=== PATIENT | female | born 1945 | race African-American/Black ===

== ENCOUNTER 2018-10-17 09:19 | Inpatient (IN) ==
[2018-10-17] MEDS ORDERED: NITROGLYCERIN ONE (09:40)
[2018-10-17] MEDS ORDERED: NITROGLYCERIN TOP ONE (09:49)
[2018-10-17] MEDS ORDERED: LASIX IV ONE (09:50)
[2018-10-17 09:59] LABS: BASO# 0.02 X1000 (0.0-0.2); BASO% 0.3 % (0.0-0.8); EOS# 0.12 X1000 (0.0-0.7); EOS% 1.5 % (0.0-10.0); HEMATOCRIT 32.8 % (37.0-47.0); HEMOGLOBIN 10.3 g/dL (12.0-16.0); IMM GRAN# 0.01 X1000 (0.0-0.04); IMM GRAN% 0.1 % (0.0-0.5); LYMPH# 0.98 X1000 (1.2-3.4); LYMPH% 12.5 % (20.5-51.1); MCH 22.1 PG (27-31); MCHC 31.4 g/dL (33-37); MCV 70.2 FL (81-99); MONO# 0.54 X1000 (0.11-0.59); MONO% 6.9 % (1.7-9.3); MPV 10.8 FL (7.4-10.4); NEUT# 6.16 X1000 (1.4-6.5); NEUT% 78.7 % (42.2-75.2); PLT 237 X1000 (130-400); RBC 4.67 XMIL (4.2-5.4); RDW 19.7 % (11.5-14.5); WBC 7.83 X1000 (4.8-10.8)
[2018-10-17 10:12] LABS: BE -1.6 mmoll (-3.0-3.0); BLOOD TYPE ARTERIAL; HCO3-(ACT) 23.5 mmoll (20.0-26.0); METHB 0.9 % (0.0-1.5); O2(CT) 11.7 mL/dL (15.0-23.0); PCO2(98.6) 45 mmHg (35-45); PO2(98.6) 51 mmHg (60-100); SAMPLE BLOOD; SAO2 88.7 % (95.0-100.0); THB 9.8 g/dL (11.5-17.4); pH(98.6) 7.34 (7.35-7.45)
[2018-10-17 10:26] LABS: ALLEN TEST NO; MODALITY CANNULA
[2018-10-17 10:28] LABS: ALBUMIN 3.4 g/dL (3.5-5.0); CREATININE 1.6 mg/dL (0.5-0.9); POTASSIUM 4.1 mmol/L (3.5-5.1); TOTAL BILIRUBIN 0.6 mg/dL (0.20-1.00); TOTAL PROTEIN 8.2 g/dL (6.3-8.3)
--- NOTE | 2018-10-17 10:31 | Diag Imaging Result Doc PS360 ---
EXAM: CHEST-PORTABLE INDICATION: sob TECHNIQUE: One view COMPARISON: 07/11/2018 FINDINGS: The central vasculature is increased suggesting pulmonary venous congestion and mild perihilar edema. There is no discrete pleural fluid collection or pneumothorax. The cardiac silhouette is borderline to mildly prominent but stable. IMPRESSION: Suggestion of pulmonary venous congestion and mild interstitial edema. Electronically signed by Power Ling 10/17/2018 10:29 AM
[2018-10-17 10:32] LABS: O2HB 84.9 % (95.0-99.0)
[2018-10-17] MEDS ORDERED: LOVENOX SUBQ SCH (14:24)
--- NOTE | 2018-10-17 15:25 | HISTORY AND PHYSICAL ---
PRIMARY CARE PHYSICIAN: Dr. Reagan Yun. CHIEF COMPLAINT: Shortness of breath over the past day that had progressively worsened. HISTORY OF PRESENTING ILLNESS: This is a 73-year-old female who presents to [facility] ER with complaints of shortness of breath. O2 saturation on room air was 86%. She is currently saturating 96% on 3 L. Her workup did show a D-dimer of 1.41, creatinine of 1.6, proBNP of 5070. TSH level was 0.16. She has had a history of congestive heart failure in the past. She states she has been taking her medications as prescribed. She had an echocardiogram approximately 1 year ago in September of 2017 that showed an ejection fraction of at least 70%, but had a grade 1 left ventricular diastolic dysfunction so she is being admitted for further evaluation and treatment. PAST MEDICAL HISTORY: Diastolic congestive heart failure, atrial fibrillation, hypertension and diabetes. PAST SURGICAL HISTORY: Hysterectomy. FAMILY HISTORY: Reviewed and noncontributory. SOCIAL HISTORY: She currently lives with family. She is a former smoker, but none currently and denies any alcohol or illicit drug use. ALLERGIES: Adhesive tape. HOME MEDICATIONS: A current list will need to be reconciled and reviewed, and restarted as appropriate. I will place an order for nursing to update and confirm home medications. LABORATORY DATA: White blood cell count of 7.83, hemoglobin 10.3, hematocrit 32.8, and platelets 237,000. D-dimer of 1.41. ABG with pH of 7.34, pCO2 of 45, PO2 51, bicarb 23.5, and this was on 3 L via nasal cannula. Sodium of 143, potassium 4.1 chloride 107, CO2 24, BUN of 21, creatinine 1.6, and glucose 122. Cardiac enzyme was negative. ProBNP of 5070. TSH of 0.16. She had a chest x-ray that showed suggestion of pulmonary venous congestion and mild interstitial edema. REVIEW OF SYSTEMS: She denied any fever, chills, blurred vision, dizziness, chest pain, or coughing. She was short of breath, had swelling to bilateral lower extremities. Denied any abdominal pain, constipation, diarrhea, burning or hurting with urination. PHYSICAL EXAMINATION: On arrival, she had a temperature of 97.7 degrees, pulse of 73, respirations 30, blood pressure was 158/107 and saturating 86% on room air, 92 on 3 L, and currently 96 on 3 L. GENERAL: This is a 73-year-old female who is sitting up in the bed and answers questions appropriately. HEENT: Normocephalic, atraumatic. Normal ENT inspection. Oropharynx and nares are clear. EYES: Pupils are equal, round, and reactive to light and accommodation. Extraocular movements are intact. NECK: Normal inspection. Normal range of motion. LUNGS: Clear to auscultation bilaterally with equal lung expansion. Chest wall movement. HEART: Regular rate and rhythm. No murmurs, rubs, or gallops. Trace bilateral lower extremity edema noted. ABDOMEN: Soft, nontender, and nondistended. Bowel sounds are present x4 quadrants. MUSCULOSKELETAL: She has 5/5 strength x4 extremities. NEUROLOGICAL: The cranial nerves 2-12 appear grossly intact. ASSESSMENT: 1. An acute diastolic congestive heart failure. 2. Elevated D-dimer. 3. Hypertension. 4. A low thyroid level. PLAN: She is being admitted to the medical unit at [address], placed on telemetry, healthy heart diet. We will place on Lasix 40 mg IV q.12. We are going to check an echocardiogram. We will obtain a venous ultrasound of her bilateral lower extremities. I will order a V/Q scan to rule out a PE, but that cannot be done until Friday to rule out a PE and DVT. Place her on Lovenox 40 mg subcu q.24. We will need to update and confirm home medications and restart as appropriate. She has an indwelling Arce catheter. We will recheck a CBC and a BMP in the morning. Further orders after seen by attending. Dictated by EVELIO Albert for Erick Ashraf MD cc: EVELIO Albert MD Malcolm R. Hendricks, MD
[2018-10-17] MEDS ORDERED: ZOFRAN IV PRN (20:37)
[2018-10-17] MEDS ORDERED: IMODIUM PO PRN (20:37)
[2018-10-17] MEDS ORDERED: TYLENOL PO PRN (20:37)
[2018-10-17] MEDS: MULTAQ PO SCH (21:03)
[2018-10-17] MEDS: LASIX IV SCH (21:03)
[2018-10-17] MEDS: NEURONTIN PO SCH (21:03)
[2018-10-17] MEDS: LIPITOR PO SCH (21:03)
[2018-10-17] MEDS: ELIQUIS PO SCH (21:03)
[2018-10-17] MEDS ORDERED: LASIX IV SCH (22:00)
[2018-10-18] MEDS ORDERED: SYNTHROID PO SCH (07:00)
[2018-10-18 07:10] LABS: BASO# 0.02 X1000 (0.0-0.2); BASO% 0.3 % (0.0-0.8); EOS# 0.19 X1000 (0.0-0.7); HEMATOCRIT 29.5 % (37.0-47.0); IMM GRAN# 0.01 X1000 (0.0-0.04); IMM GRAN% 0.2 % (0.0-0.5); LYMPH# 1.12 X1000 (1.2-3.4); LYMPH% 17.5 % (20.5-51.1); MCH 21.7 PG (27-31); MCHC 30.5 g/dL (33-37); MCV 71.1 FL (81-99); MONO# 0.45 X1000 (0.11-0.59); MPV 11.3 FL (7.4-10.4); NEUT# 4.61 X1000 (1.4-6.5); PLT 221 X1000 (130-400); RBC 4.15 XMIL (4.2-5.4); RDW 19.2 % (11.5-14.5)
[2018-10-18 07:22] LABS: CREATININE 1.6 mg/dL (0.5-0.9); POTASSIUM 3.7 mmol/L (3.5-5.1)
[2018-10-18 07:30] LABS: EOS 4 % (1-10); LYMPHS 24 % (21-51); MONO 2 % (1-9); SEGS 70 % (42-75)
[2018-10-18] MEDS ORDERED: GLUCOPHAGE PO SCH (07:30)
[2018-10-18 07:31] LABS: ANISOCYTOSIS 2+; HYPOCHROM 2+; MICROCYTOSIS 1+; POIKILOCYTOSIS 2+; POLYCHROM OCCASIONAL
[2018-10-18 07:32] LABS: OVALOCYTES OCCASIONAL; TARGET CELLS 2+
--- NOTE | 2018-10-18 08:43 | ECHO REPORT ---
ORDER DATE: 10/17/2018 INDICATIONS: Congestive heart failure. M-MODE MEASUREMENTS: Left ventricle end diastole: 3.7 cm. Left ventricle end systole: 2.7 cm. Posterior wall: 0.9 cm. Interventricular septum: 1.0 cm. Left atrium: 4.2 cm. Inferior vena cava: 2.4 cm. SUMMARY OF 2-DIMENSIONAL IMAGIN. The left ventricular function is normal. Ejection fraction is estimated to be in the range of 60%-65%. No wall motion abnormality is noted. The left atrium appears to be mildly enlarged. 2. Aortic valve shows very mild degree of sclerosis of the cusp with trivial aortic regurgitation. 3. Mitral valve looks normal. Color flow mapping unremarkable. 4. Pulse wave Doppler of mitral inflow shows reversal of the E/A ratio, ratio is 0.7. 5. Tissue Doppler of septal and lateral mitral annulus averages 10 cm. 6. Pulmonary venous flow is normal. 7. There is no diastolic dysfunction. 8. Tricuspid valve shows mild degree of regurgitation. 9. The pulmonary pressure is estimated somewhere in the range of 45-50 mmHg. 10.Pulmonic valve shows mild degree of regurgitation. 11.There is no pericardial effusion, mass and no thrombus. 12.Right ventricle appears to be mildly enlarged. SUMMARY: In summary, this study shows: 1. Normal left ventricular systolic function. 2. Mild degree pulmonary hypertension estimated in the range of 45-50 mmHg. 3. Mild to moderate degree of pulmonic and tricuspid regurgitation. 4. Mild degree of sclerosis of aortic valve with trivial degree of regurgitation. 5. No diastolic dysfunction. Clinical correlation recommended. cc: MD Juarez Simpson MD
[2018-10-18] MEDS ORDERED: COZAAR PO SCH (09:00)
[2018-10-18] MEDS ORDERED: FERROUS SULFATE PO SCH (09:00)
[2018-10-18] MEDS ORDERED: HYDROCHLOROTHIAZIDE PO SCH (09:00)
[2018-10-18 09:08] LABS: IRON SATURATION 18 %; TIBC 159 ug/dL; TOTAL IRON 28 ug/dL (49-151); UNBOUND IRON 131 ug/dL (112-346)
--- NOTE | 2018-10-18 09:37 | Diag Imaging Result Doc PS360 ---
EXAM: CT THORAX W/O CONTRAST INDICATION: abnormal Chest X Ray /extensive infiltrates TECHNIQUE: This exam was performed using automated exposure control, adjustment of mA or kV according to patient size, and/or use of iterative reconstruction technique. COMPARISON: None. FINDINGS: There is interstitial thickening throughout both lungs with mosaic attenuation and mild infiltrates at the lung bases most consistent with pulmonary edema. There is mild emphysematous change at the left lung base. There is a spiculated nodule in the left lower lobe near the base abutting the pleura. This could represent nodular scarring. However, follow-up is recommended based on Fleischner Society criteria with an initial follow-up CT in 3 months. The nodule measures approximately 1.1 cm axially. There are a few other tiny subcentimeter nodules measuring less than 4 mm bilaterally the statistically most likely represent noncalcified granulomata. There is a calcified granuloma in the right lower lobe. There are small pleural fluid collections and there is bibasilar atelectasis. Superimposed infection, especially at the right lung base is possible. There is cardiomegaly. There are a few calcified mediastinal and hilar lymph nodes indicating prior granulomatous disease. There are other prominent noncalcified lymph nodes that are nonspecific but may be reactive. For reference, there is a pretracheal lymph node that measures up to 2.3 x 1.8 cm axially on image 33 of series 2. There is extensive coronary artery atherosclerotic calcification. Limited views of the upper abdomen reveals a small hiatal hernia. There is atherosclerotic calcification involving the major vessels of the aorta. The upper abdomen is essentially unremarkable, otherwise. IMPRESSION: 1.Interstitial thickening and groundglass infiltrates bilaterally most compatible with pulmonary edema. 2.Small pleural effusions and bibasilar atelectasis. Superimposed infection, especially at the right lung base is possible in the right clinical scenario. 3.Spiculated nodular density in the left lower lobe near the base. Follow-up chest CT based on Fleischner Society criteria is recommended. 4.Cardiomegaly. 5.Nonspecific mediastinal and hilar lymphadenopathy, possibly reactive. 6.Other incidental/nonacute findings detailed above. Electronically signed by Power Ling 10/18/2018 9:34 AM
[2018-10-18] MEDS: NORVASC PO SCH (09:49)
[2018-10-18] MEDS: NEURONTIN PO SCH ×2 (09:49→20:25)
[2018-10-18] MEDS: ELIQUIS PO SCH ×2 (09:49→20:25)
[2018-10-18] MEDS: LASIX IV SCH ×2 (09:50→20:25)
[2018-10-18] MEDS: JANUVIA PO SCH (09:50)
--- NOTE | 2018-10-18 14:08 | CARDIOLOGY CONSULTATION ---
DATE: 10/18/2018 CONSULTATION REQUESTED BY: Dr. Ashraf, hospital service. REASON: Is dyspnea, CHF. HISTORY: Mrs. Wilson is a pleasant 73-year-old black female who presented to the hospital yesterday at about 9 o'clock in the morning with at least 48 hours of progressive exertional dyspnea rest, paroxysmal nocturnal dyspnea and some puffiness of the legs. The patient states that this has happened to her before and she has been previously diagnosed with congestive heart failure. Upon presentation they did blood work that shows a proBNP of 5070. BUN is 21, creatinine 1.6. They did a complete blood count that shows a hemoglobin of 10.3 with an MCV of 70.2, RDW of 19.7 with 2+ target cells, microcytosis, poikilocytosis, anisocytosis, sedimentation rate is 71. D-dimer was 1.41 mcg/mL FEU. Blood gas showed a pO2 of 51, pCO2 45 , pH 7.34 on 3 L nasal cannula. The patient has been given a chest x-ray at the time of initial presentation that shows suggestion of pulmonary venous congestion and mild interstitial edema. She has been given Lasix and admitted to the hospital for further management. PAST MEDICAL HISTORY: Positive for hyperlipidemia, hypertension, sleep apnea syndrome, hypothyroidism and paroxysmal atrial fibrillation. The patient follows normally with Dr. Reagan Yun for primary care and Dr. Lan Bowens for cardiology. She used to be a patient of Dr. Gaye Christian. The patient does have a history of mild coronary artery disease by heart catheterization February 2011. Back then they noted 30 to 40 percent mid LAD stenosis, circumflex small vessel, right coronary artery 20 to 30 percent stenosis. She carries a diagnosis of pulmonary hypertension. She has obesity. Her last weight recorded at our office on 08/31/2018 was 223-1/2 pounds, body mass index 38. Here is body mass index of 35. SURGICAL HISTORY: Positive for hysterectomy, shoulder surgery, she has had colon resection. SOCIAL HISTORY: She works at [employer] for the past 15 years. She works 8 hours a day Friday through Friday. 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 She has 3 grownup children. Her . She was already. FAMILY HISTORY: Negative for heart disease. She was the only child. Her parents did not of heart disease as far she knows. HOME MEDICATIONS: Included albuterol inhaler, amlodipine daily 10 mg, Apixaban 5 mg twice a day, dronedarone 400 twice a day, ferrous sulfate 325 daily, furosemide 40 mg IV every 12 hours, gabapentin 600 twice a day, loperamide 2 mg, Zofran 4 mg IV, Januvia 50 mg daily. REVIEW OF SYSTEMS: She has been diagnosed with mild degree of chronic kidney disease. She had a recent abdominal ultrasound that showed no significant abnormalities. She took a stress test on 07/31/2018. At that time her stress test showed fixed defect in the very central portion inferior wall most likely soft tissue attenuation, no evidence of ischemia, ejection fraction 79%. The patient was admitted to [facility] last time in April 2018. At that time she had echocardiogram that showed normal left ventricular systolic function. Her admission to [facility] was in April 2018 for resection of a colonic mass. No other significant abnormalities noted in past history and review of systems.Sleeps with CPAP. PHYSICAL EXAMINATION: Blood pressure 131/74, temperature 98.1 degrees, pulse 70, respirations 18. She is awake, alert, oriented in no distress.HEENT: Unremarkable. Chest: Shows diminished breath sounds at bases. Heart: Sounds are somewhat irregular with a systolic murmur over the aortic area. Abdomen: Obese, nontender. Extremities: Showed no edema. She does have some varicose veins. Neurological: She follows commands, moves 4 extremities. DATA: Her blood work today sodium is 145, potassium 3.7, BUN 23, creatinine 1.6. She has had just 1 troponin level checked. IMPRESSION: 1. Patient presenting to the hospital with what appears to be decompensated diastolic heart failure. Echocardiogram done yesterday shows normal left ventricular systolic function. 2. Patient with paroxysmal atrial fibrillation. 3. History of pulmonary hypertension. 4. History of sleep apnea syndrome. 5. Obesity. 6. Chronic kidney disease. 7. Hypochromic microcytic anemia with 2+ target cells, question of thalassemia/ abnormal hemoglobin. 8. TSH noted to be 0.16 and free T4 1.99. This raises concern for iatrogenic hyperthyroidism. RECOMMENDATION: 1. At this point in time I would suggest to put on hold her thyroid supplements since that could be contributing to decompensation on the cardiovascular system. 2. We need to determine if this patient requires oxygen supplements at all times. Once the patient is deemed to be euvolemic we need to recheck her blood gases on room air. Consideration may be given at performing right heart catheterization to reassess her pulmonary pressures and perhaps coronary arteriography. A CT scan of the chest was done today and shows evidence of interstitial thickening and ground-glass infiltrates bilaterally consistent with pulmonary edema, small pleural effusions and bibasilar atelectasis, spiculated nodular density in the left lower lobe near the base. A follow CT has been recommended. They are nonspecific mediastinal and hilar lymphadenopathy. 3. We have additional blood tests pending including C-reactive protein and a ferritin level. 4. Her iron, TIBC was slightly low with a saturation of 18%. I will ask for Hemoglobin electrophoresis (Hb Abnormality? Thalassemia?) 5. Further advice will be forthcoming. I will discuss with Dr. Bowens. Perhaps we should consider referring the patient to pulmonary for help with management of chronic pulmonary hypertension with hypoxemia. cc: Ney Rosenberg MD MTDD
[2018-10-18] MEDS: MULTAQ PO SCH ×2 (15:15→20:25)
--- NOTE | 2018-10-18 15:19 | EKG Report ---
Test Performed on : 10/18/2018 1:45:37 PM Test Reason : ATRIAL ARRHYTHMIA Blood Pressure : / mmHG Vent. Rate : 070 BPM Atrial Rate : 070 BPM P-R Int : 154 ms QRS Dur : 094 ms QT Int : 420 ms P-R-T Axes : 045 016 055 degrees QTc Int : 453 ms Sinus rhythm. with premature atrial complexes. with aberrant conduction. Nonspecific ST and T wave abnormality Abnormal ECG When compared with ECG of 17-OCT-2018 09:42, (Unconfirmed) aberrant conduction. is now present Unconfirmed Result
[2018-10-18 15:23] LABS: RA TEST < 10 IU/mL (0-14)
--- NOTE | 2018-10-18 16:13 | Extremity Venous Study ---
EXAM: Venous U/S Bilateral Legs INDICATION: elevated ddimer TECHNIQUE: COMPARISON: None. FINDINGS: There are no discrete filling defects on grayscale images and there is normal Doppler flow, compressibility, and augmentation involving the deep venous systems of the right and left lower extremities. The great saphenous veins are also patent bilaterally. Surrounding soft tissues are grossly unremarkable. IMPRESSION: No evidence of DVT. Electronically signed by Power Ling 10/18/2018 4:11 PM
[2018-10-18] MEDS ORDERED: ELIQUIS PO SCH (17:00)
--- NOTE | 2018-10-18 18:33 | PROGRESS NOTE ---
DATE: 10/18/2018 SUBJECTIVE: Patient has no focal complaints. OBJECTIVE: Blood pressure is 103/69, heart rate is 70, respiratory rate is 16, temperature 98.4, 99% on 2 L, 3 L.Cardiovascular: Regular rate and rhythm. Pulmonary: Bilateral breath sounds. Clear to auscultation. Gastrointestinal: Soft, nontender, nondistended. Bowel sounds are positive. LABORATORY DATA: Her white count is 6, hemoglobin and hematocrit 9 and 29, platelets 221,000. Basic: Creatinine is 1.6. CRP is up a little bit. Rheumatoid is up a little bit. PROBLEM LIST: 1. Acute diastolic heart failure. She is on Lasix. We will continue to monitor and her renal insufficiency. 2. Hyperthyroid. Labs in the setting of hypothyroidism. She is usually on 200 Synthroid, but obviously that is overactive. We have held her Synthroid. It may need to be adjusted down prior to discharge. We will see how she does. 3. Atrial fibrillation. She is on Eliquis and Bystolic at 40 mg a day. 4. Type 2 diabetes. We will continue to monitor very closely on current medications. 5. Disposition: Cardiology consult has been done and we have done that and they are deciding about a left and right heart catheterization. I will find out about that. 6. Spiculated nodular density. This will need to be monitored long-term. 7. Iron deficiency anemia. This is known apparently because she is on iron, but she is on an odd dose, just ferrous sulfate. We will give her Icar C. 8. So, in any case, hopefully discharge in next 1 to 2 days but also pending her left heart catheterization. cc: Erick Ashraf MD [facility]
[2018-10-18] MEDS: LIPITOR PO SCH (20:25)
[2018-10-19 06:08] LABS: BE 7.6 mmoll (-3.0-3.0); BLOOD TYPE ARTERIAL; HCO3-(ACT) 30.5 mmoll (20.0-26.0); METHB 0.7 % (0.0-1.5); SAMPLE BLOOD; THB 8.7 g/dL (11.5-17.4)
[2018-10-19 06:16] LABS: ALLEN TEST YES; MODALITY ROOM AIR; O2HB 73.1 % (95.0-99.0); PCO2(98.6) 54 mmHg (35-45); PO2(98.6) 37 mmHg (60-100)
[2018-10-19 07:18] LABS: BASO# 0.01 X1000 (0.0-0.2); BASO% 0.2 % (0.0-0.8); EOS# 0.16 X1000 (0.0-0.7); EOS% 3.3 % (0.0-10.0); HEMATOCRIT 28.8 % (37.0-47.0); HEMOGLOBIN 8.7 g/dL (12.0-16.0); IMM GRAN# 0.01 X1000 (0.0-0.04); IMM GRAN% 0.2 % (0.0-0.5); LYMPH# 1.02 X1000 (1.2-3.4); MCH 21.5 PG (27-31); MCHC 30.2 g/dL (33-37); MCV 71.3 FL (81-99); MONO# 0.46 X1000 (0.11-0.59); MONO% 9.5 % (1.7-9.3); MPV 11.3 FL (7.4-10.4); NEUT% 65.8 % (42.2-75.2); PLT 191 X1000 (130-400); RBC 4.04 XMIL (4.2-5.4); RDW 18.8 % (11.5-14.5); WBC 4.86 X1000 (4.8-10.8)
[2018-10-19 07:20] LABS: CALCIUM 8.3 mg/dL (8.8-10.2); CREATININE 1.8 mg/dL (0.5-0.9); POTASSIUM 3.2 mmol/L (3.5-5.1)
[2018-10-19 08:06] LABS: EOS 3 % (1-10); LYMPHS 20 % (21-51); MONO 9 % (1-9); SEGS 68 % (42-75)
[2018-10-19 08:07] LABS: ANISOCYTOSIS 4+; MICROCYTOSIS 2+; POIKILOCYTOSIS OCCASIONAL; POLYCHROM OCCASIONAL
[2018-10-19 08:10] LABS: OVALOCYTES OCCASIONAL
[2018-10-19 08:11] LABS: TARGET CELLS OCCASIONAL
[2018-10-19] MEDS: MULTAQ PO SCH ×2 (08:20→21:53)
[2018-10-19] MEDS: NEURONTIN PO SCH ×2 (08:20→21:53)
[2018-10-19] MEDS: BYSTOLIC PO SCH (08:20)
[2018-10-19] MEDS: ICAR-C PO SCH (08:21)
[2018-10-19] MEDS: ELIQUIS PO SCH ×2 (08:21→22:08)
[2018-10-19] MEDS: NORVASC PO SCH (08:21)
[2018-10-19] MEDS: JANUVIA PO SCH (08:21)
[2018-10-19] MEDS: LASIX IV SCH ×2 (08:22→21:53)
[2018-10-19 08:37] LABS: BILIRUBIN URINE NEGATIVE (NEGATIVE); BLOOD URINE NEGATIVE (NEGATIVE); CLARITY CLEAR (CLEAR); COLOR YELLOW; GLUCOSE URINE NEGATIVE (NEGATIVE); KETONE URINE NEGATIVE (NEGATIVE); LEUKOCYTES URINE NEGATIVE (NEGATIVE); NITRITE URINE NEGATIVE (NEGATIVE); PH URINE 6.5; PROTEIN URINE NEGATIVE (NEGATIVE); SP GRAVITY URINE 1.005; URINE EPITHELIAL CELLS <10 /HPF (<10); UROBILINOGEN URINE NORMAL
[2018-10-19 08:38] LABS: URINE SOURCE CLEAN CATCH
[2018-10-19] MEDS ORDERED: NEBIVOLOL HCL PO SCH (09:00)
--- NOTE | 2018-10-19 09:10 | EKG Report ---
Test Performed on : 10/19/2018 06:02:39 AM Test Reason : atrial arrhythmia Blood Pressure : / mmHG Vent. Rate : 065 BPM Atrial Rate : 065 BPM P-R Int : 154 ms QRS Dur : 096 ms QT Int : 450 ms P-R-T Axes : 023 014 021 degrees QTc Int : 468 ms Sinus rhythm. with premature atrial complexes. with aberrant conduction. Otherwise normal ECG When compared with ECG of 18-OCT-2018 13:45, (Unconfirmed) No significant change was found Unconfirmed Result
--- NOTE | 2018-10-19 12:17 | Diag Imaging Result Doc PS360 ---
EXAM: LUNG SCAN / VQ 10/19/2018 HISTORY: elevated ddimer, hypoxemia TECHNIQUE: Dilation perfusion lung scan, 34.2 mCi of technetium 99m DTPA aerosol for the ventilation portion and 5.2 mCi of technetium 99m MAA for the ventilation portion. COMMENT: There is no evidence of dilation perfusion mismatch or perfusion defect. IMPRESSION: Normal study. Electronically signed by Alexx Jones 10/19/2018 12:15 PM
--- NOTE | 2018-10-19 12:57 | Diag Imaging Result Doc PS360 ---
EXAM: CHEST-2 VIEWS 10/19/2018 HISTORY: shortness of breath TECHNIQUE: PA and lateral chest COMMENT: The inspiration is better than on 10/17/2018. There is less opacity in both lung bases. Compared to 07/11/2018 the lingula is less opacified in the left heart border is more visible. Otherwise there has been no appreciable change. IMPRESSION: Cardiomegaly. Mild residual pulmonary edema and/or pneumonia. Electronically signed by Alexx Jones 10/19/2018 12:55 PM
--- NOTE | 2018-10-19 15:05 | EKG Report ---
Test Performed on : 10/17/2018 09:42:35 AM Test Reason : ER Blood Pressure : / mmHG Vent. Rate : 076 BPM Atrial Rate : 076 BPM P-R Int : 162 ms QRS Dur : 096 ms QT Int : 416 ms P-R-T Axes : 061 030 051 degrees QTc Int : 468 ms Normal sinus rhythm. Normal ECG When compared with ECG of 11-JUL-2018 21:26, Nonspecific T wave abnormality no longer evident in Inferior leads Nonspecific T wave abnormality, improved in Anterior leads Unconfirmed Result
[2018-10-19] MEDS: LIPITOR PO SCH (21:53)
--- NOTE | 2018-10-19 22:22 | PROGRESS NOTE ---
DATE: 10/19/2018 SUBJECTIVE: Patient notes that she is feeling a little bit better. Denies any chest pain, palpitations. Denies any fevers. PHYSICAL EXAM: Vital signs: Temperature is 98 degrees, pulse 60, respiratory rate 18, BP 117/61. General: Patient is awake, alert. She is pleasant to talk with. HEENT: Normocephalic. Neck: Supple. Cardiovascular: Regular rate. Chest: Clear. Abdomen: Soft. Extremities: Moves all extremities. ASSESSMENT: 1. Acute diastolic congestive heart failure. 2. Hyperthyroidism. 3. Atrial fibrillation. 4. Diabetes. 5. Spiculated nodular density. Will need continued long-term followup. 6. Iron deficiency anemia. 7. Pulmonary hypertension. 8. Chronic obesity with obstructive sleep apnea. 9. Chronic kidney disease, stable. 10. Hypoxic respiratory failure. PLAN: We will continue Lasix 80 IV twice daily today. Continue to follow her creatinine and potassium. Hopefully, she can be discharged home soon. Will continue to get out of bed. cc: Chintan Peña MD
[2018-10-20 06:39] LABS: BASO# 0.01 X1000 (0.0-0.2); BASO% 0.2 % (0.0-0.8); EOS# 0.17 X1000 (0.0-0.7); EOS% 3.8 % (0.0-10.0); HEMATOCRIT 28.9 % (37.0-47.0); HEMOGLOBIN 8.7 g/dL (12.0-16.0); IMM GRAN# 0.02 X1000 (0.0-0.04); IMM GRAN% 0.4 % (0.0-0.5); LYMPH# 0.95 X1000 (1.2-3.4); LYMPH% 21.2 % (20.5-51.1); MCH 21.4 PG (27-31); MCHC 30.1 g/dL (33-37); MONO# 0.46 X1000 (0.11-0.59); MONO% 10.2 % (1.7-9.3); MPV 10.6 FL (7.4-10.4); NEUT# 2.88 X1000 (1.4-6.5); NEUT% 64.2 % (42.2-75.2); PLT 200 X1000 (130-400); RBC 4.07 XMIL (4.2-5.4); RDW 18.9 % (11.5-14.5); WBC 4.49 X1000 (4.8-10.8)
[2018-10-20 06:54] LABS: ALBUMIN 2.9 g/dL (3.5-5.0); POTASSIUM 3.3 mmol/L (3.5-5.1); TOTAL BILIRUBIN 0.4 mg/dL (0.20-1.00); TOTAL PROTEIN 7.3 g/dL (6.3-8.3)
[2018-10-20] MEDS ORDERED: KLOR-CON PO ONE (07:49)
[2018-10-20] MEDS: MULTAQ PO SCH ×2 (08:51→20:41)
[2018-10-20] MEDS: LASIX PO SCH (08:52)
[2018-10-20] MEDS: ELIQUIS PO SCH ×2 (08:52→20:41)
[2018-10-20] MEDS: ICAR-C PO SCH (08:52)
[2018-10-20] MEDS: JANUVIA PO SCH (08:52)
[2018-10-20] MEDS: BYSTOLIC PO SCH (08:52)
[2018-10-20] MEDS: NEURONTIN PO SCH ×2 (08:52→20:42)
[2018-10-20] MEDS: NORVASC PO SCH (08:52)
[2018-10-20 09:00] LABS: I-STAT BE 7 mmoll (-2-3); I-STAT GLUCOSE 98 mg/dL (70-105); I-STAT HEMOGLOBIN 9.2 g/dL (11.5-17.5); I-STAT K 3.1 mmoll (3.5-4.9); I-STAT TCO2 33 mmoll (23-27); I-STAT pH 7.389 (7.350-7.450)
[2018-10-20 09:40] LABS: ANISOCYTOSIS 3+; HYPOCHROM 1+; LYMPHS 20 % (21-51); MICROCYTOSIS 2+; MONO 9 % (1-9); SEGS 71 % (42-75); TARGET CELLS OCCASIONAL
[2018-10-20 09:41] LABS: HOWELL-JOLLY BODIES OCCASIONAL
[2018-10-20] MEDS: LIPITOR PO SCH (20:41)
--- NOTE | 2018-10-20 23:28 | PROGRESS NOTE ---
DATE: 10/20/2018 SUBJECTIVE: Patient notes that she is feeling better. She is still tired but is able to get out of bed. Denies any fevers. Denies chest pain, palpitations. OBJECTIVE: Temperature 97, pulse 61, respiratory 18, BP 115/71, saturations 96 to 98 percent on 3 L.CV: Regular rate. Chest: Clear, nonlabored. Abdomen: Soft, nondistended. Extremities: Moves all extremities. Neuro: No changes. ASSESSMENT: 1. Hypoxic respiratory failure. 2. Chronic kidney disease. 3. Obstructive sleep apnea with obesity. 4. Pulmonary hypertension. 5. Acute diastolic heart failure. 6. Atrial fibrillation. 7. Type 2 diabetes. PLAN: Will continue patient in the hospital, continue to attempt to wean oxygen, change Lasix to p.o. daily as her creatinine and BUN both have bumped slightly and will follow. Hopefully she can discharge home tomorrow. cc: Chintan Peña MD
[2018-10-21 07:24] LABS: BASO# 0.01 X1000 (0.0-0.2); BASO% 0.2 % (0.0-0.8); EOS# 0.17 X1000 (0.0-0.7); EOS% 4.2 % (0.0-10.0); HEMATOCRIT 29.2 % (37.0-47.0); HEMOGLOBIN 8.8 g/dL (12.0-16.0); IMM GRAN# 0.01 X1000 (0.0-0.04); IMM GRAN% 0.2 % (0.0-0.5); LYMPH# 0.87 X1000 (1.2-3.4); LYMPH% 21.6 % (20.5-51.1); MCH 21.5 PG (27-31); MCHC 30.1 g/dL (33-37); MCV 71.4 FL (81-99); MONO# 0.59 X1000 (0.11-0.59); MONO% 14.7 % (1.7-9.3); NEUT# 2.37 X1000 (1.4-6.5); NEUT% 59.1 % (42.2-75.2); PLT 185 X1000 (130-400); RBC 4.09 XMIL (4.2-5.4); RDW 18.6 % (11.5-14.5); WBC 4.02 X1000 (4.8-10.8)
[2018-10-21 07:31] LABS: ALBUMIN 2.7 g/dL (3.5-5.0); CREATININE 1.8 mg/dL (0.5-0.9); POTASSIUM 3.9 mmol/L (3.5-5.1); TOTAL BILIRUBIN 0.3 mg/dL (0.20-1.00); TOTAL PROTEIN 6.9 g/dL (6.3-8.3)
[2018-10-21] MEDS: JANUVIA PO SCH (09:06)
[2018-10-21] MEDS: NEURONTIN PO SCH (09:06)
[2018-10-21] MEDS: NORVASC PO SCH (09:06)
[2018-10-21] MEDS: ICAR-C PO SCH (09:07)
[2018-10-21] MEDS: MULTAQ PO SCH (09:07)
[2018-10-21] MEDS: LASIX PO SCH (09:07)
[2018-10-21] MEDS: ELIQUIS PO SCH (09:07)
[2018-10-21] MEDS: BYSTOLIC PO SCH (09:07)
[2018-10-21 09:29] LABS: EOS 6 % (1-10); LYMPHS 20 % (21-51); MONO 12 % (1-9); SEGS 62 % (42-75)
[2018-10-21 11:46] LABS: HEMOGLOBIN ELECTROPHORESIS SEE COMMENTS
[2018-10-21 14:27] VITALS: BP 108/71
--- NOTE | 2018-10-22 05:43 | DISCHARGE SUMMARY ---
PLEASE DELETE MTDD
--- NOTE | 2018-10-22 06:30 | DISCHARGE SUMMARY ---
ADMISSION DATE: 10/17/2018 DISCHARGE DATE: 10/21/2018 DISCHARGE DIAGNOSES: 1. Pulmonary hypertension. 2. Acute hypoxic respiratory failure. 3. Chronic kidney disease. 4. Obstructive sleep apnea. 5. Atrial fibrillation. 6. Type 2 diabetes. 7. Hyperthyroidism, improved. 8. Acute on chronic diastolic congestive heart failure. 9. Spiculated nodular density that needs to be followed up in the next month or 2 per her primary care. 10. Iron deficiency anemia. 11. Hyponatremia. 12. Chronic kidney disease. CONSULTATIONS: Cardiology. BRIEF HOSPITAL COURSE: The patient is a 73-year-old female who presented to the hospital as noted in the HPI. Treated in usual fashion, placed on IV Lasix at 40 IV twice daily. She did have a slight increase in her chronic kidney disease while she was in the hospital. She was noted to have hypokalemia. This was easily replaced. She was placed on oxygen. On discharge, she still required oxygen and therefore will be discharged home with oxygen. Thankfully, she had an uneventful hospital course. On discharge, she is awake, alert. She is able to ambulate back and forth to the restroom without any difficulties. DISPOSITION: The patient will be discharged home. She will continue Lasix daily at home as well as home oxygen. She will continue her other medications. She will follow up outpatient with Cardiology as they had suggested that she have a left heart catheterization once her symptoms improve. This will be scheduled per Cardiology after her appointment with them if they still deem it necessary. She will continue to follow up with primary care. TIME SPENT: Greater than 30 minutes were spent in total care. cc: Chintan Peña MD
--- NOTE | 2018-10-23 08:20 | PROVIDER DOCUMENTATION ---
This chart was entered by Mary Horvath Scribe, acting as scribe for Juarez Redman MD. HPI-Respiratory General - General Chief Complaint: Shortness of Breath Stated Complaint: SOB / AFIB Time Seen by Provider: 10/17/18 09:32 Source: patient Allergies/Adverse Reactions: Patient Allergies Allergy/AdvReac Type Severity Reaction Status Date / Time adhesive tape AdvReac ITCHING Verified 07/11/18 20:52 Home Medications: Home Medication List Medication Instructions Recorded Confirmed Last Taken Type Sulfamethoxazole/Trimethoprim 1 ea PO BID #14 tab 08/10/17 Unknown Rx [Bactrim Ds Tablet] Albuterol Sulfate [Albuterol 8.5 gm IH Q4H PRN PRN #1 hfa.aer.ad 07/11/18 Unknown Rx Sulfate Hfa] Amlodipine Besylate 07/11/18 07/11/18 Unknown History Apixaban [Eliquis] 07/11/18 07/11/18 Unknown History Atorvastatin Calcium 07/11/18 07/11/18 Unknown History Benzonatate [Tessalon] 100 mg PO TID PRN PRN #20 cap 07/11/18 Unknown Rx Dronedarone HCl [Multaq] 07/11/18 07/11/18 Unknown History Furosemide 07/11/18 07/11/18 Unknown History Gabapentin 07/11/18 07/11/18 Unknown History Levofloxacin [Levaquin] 750 mg PO DAILY #7 tab 07/11/18 Unknown Rx Levothyroxine Sodium 07/11/18 07/11/18 Unknown History Metformin HCl 07/11/18 07/11/18 Unknown History Nebivolol HCl [Bystolic] 07/11/18 07/11/18 Unknown History Saline Nasal [place] [[place] Nasal 2 spray LAUREN PRN PRN #1 bottle 07/11/18 Unknown Rx [place]] Sitagliptin [Januvia] 07/11/18 07/11/18 Unknown History - History of Present Illness-Resp Nature of Presenting Problem: 73yof with hx of CHF, A-fib, diabetes, HTN c/o sob since this morning. She has SPO2 of 82-86. She reports her PCP as Dr. Reagan Yun and her twister hand as Dr. Nelson. She denies cp, fever, chills, nausea, vomiting, diarrhea. Quality of Pain: reports: none Severity in ED: reports: moderate Onset/Duration: reports: this morning Timing: reports: still present, constant Cough Quality/Degree: reports: no cough Current Respiratory Medication Therapy: Initiated see nurses note Modifying Factors: improves with: nothing Associated Symptoms: reports: shortness of breath. denies: chest pain/soreness, cough, fever/chills Similar Symptoms Previously?: No Recently seen or treated by another doctor?: No Review of Systems - Adult - REVIEW OF SYSTEMS - ADULT Constitutional: denies: chills, fever Eyes: denies: discharge, dry eyes Ears, Nose, Mouth & Throat: denies: ear discharge, ear pain Cardiovascular: denies: chest pain, palpitations Respiratory: reports: shortness of breath. denies: cough Gastrointestinal: denies: abdominal pain, diarrhea, nausea, vomiting Genitourinary: denies: dysuria, hematuria Musculoskeletal: denies: back pain, muscle aches, muscle weakness Integumentary: reports: no symptoms reported Neurological: denies: dizziness/vertigo, headache/migraines Psychiatric: reports: no symptoms reported Endocrine: reports: no symptoms reported Hematologic/Lymphatic: reports: no symptoms reported Allergic/Immunologic: reports: no symptoms reported All Other Systems: Reviewed and Negative Past History - Adult - PAST MEDICAL HISTORY-ADULT Review of Records: reports: Old Records Reviewed, Nursing Assessment Review, Medications Reviewed Cardiovascular: reports: A-Fib, CHF, HTN Endocrine/Immune: reports: Diabetes - PRIOR SURGERIES/PROCEDURES Surgical/Procedure History: reports: hysterectomy - IMMUNIZATION STATUS Childhood Immunizations: See Nurse Assessment Flu Vaccine: See Nurse Assessment - FAMILY HISTORY Family History: reviewed, not pertinent - SOCIAL HISTORY Smoking: other (former) Substance Use: denies Living Situation: family Physical Exam-General - PHYSICAL EXAM-ADULT Initial Vital Signs Reviewed: Yes - CONSTITUTIONAL General Appearance: alert, mild distress, obese, other (pt is wearing oxygen via nasal cannula) - EYES Eyes: PERRL/EOMI, pink conjunctivae - HEAD, EARS, NOSE, MOUTH & THROAT HENMT: normocephalic/atraumatic, moist mucous membranes - NECK Neck: non-tender, supple - RESPIRATORY Respiratory: respiratory distress, accessory muscle use. negative: crackles, wheezing - CARDIOVASCULAR Cardiovascular: regular rate, rhythm, JVD, other (murmur) - GASTROINTESTINAL (ABDOMEN) Abdominal Exam: non tender, soft. negative: guarding - MUSCULOSKELETAL Extremity: non-tender, pedal edema - SKIN Integumentary: normal color, warm/dry - NEUROLOGIC Neurologic: grossly normal, no motor/sensory deficits - PSYCHIATRIC Psych/Mental Status: normal mood/affect, normal thought content, normal thought process, oriented x 3 Progress - PLAN OF CARE/RESULTS Progress/Plan/Lab Results: Vital Signs - 8 hr 10/17/18 09:25 10/17/18 09:28 10/17/18 10:05 Temperature 97.7 F Pulse Rate 73 71 72 Respiratory Rate 30 H 20 28 H Blood Pressure 158/107 163/75 136/95 O2 Sat by Pulse Oximetry 92 L 86 L 96 Laboratory Results - last 24 hr 10/17/18 10/17/18 10/17/18 09:49 09:49 09:49 WBC 7.83 RBC 4.67 Hgb 10.3 L Hct 32.8 L MCV 70.2 L MCH 22.1 L MCHC 31.4 L RDW Std Deviation 19.7 H Plt Count 237 MPV 10.8 H Immature Gran % (Auto) 0.1 Neut % (Auto) 78.7 H Lymph % (Auto) 12.5 L [place] % (Auto) 6.9 Eos % (Auto) 1.5 Baso % (Auto) 0.3 Immature Gran # (Auto) 0.01 Neut # (Auto) 6.16 Lymph # (Auto) 0.98 L [place] # (Auto) 0.54 Eos # (Auto) 0.12 Baso # (Auto) 0.02 D-Dimer, Quantitative Specimen Type Sample Site pH pCO2 pO2 HCO3 Base Excess Oxyhemoglobin ABG O2 Sat (Calculated) ABG O2 Saturation ABG Carboxyhemoglobin ABG Methemoglobin [place] Test A-a O2 Difference Total Hemoglobin Lactate Liter Flow Blood Gas Modality FiO2 % Sodium Potassium Chloride Carbon Dioxide Anion Gap BUN Creatinine Estimated GFR/1.73 m2 BUN/Creatinine Ratio Glucose Calculated Osmolality Calcium Total Bilirubin AST ALT Alkaline Phosphatase Creatine Kinase 29 Troponin T < 0.010 Imy-M-Oppcaepzxpz Pept Total Protein Albumin Globulin Albumin/Globulin Ratio TSH 10/17/18 10/17/18 10/17/18 09:49 09:49 09:49 WBC RBC Hgb Hct MCV MCH MCHC RDW Std Deviation Plt Count MPV Immature Gran % (Auto) Neut % (Auto) Lymph % (Auto) [place] % (Auto) Eos % (Auto) Baso % (Auto) Immature Gran # (Auto) Neut # (Auto) Lymph # (Auto) [place] # (Auto) Eos # (Auto) Baso # (Auto) D-Dimer, Quantitative 1.41 H Specimen Type Sample Site pH pCO2 pO2 HCO3 Base Excess Oxyhemoglobin ABG O2 Sat (Calculated) ABG O2 Saturation ABG Carboxyhemoglobin ABG Methemoglobin [place] Test A-a O2 Difference Total Hemoglobin Lactate Liter Flow Blood Gas Modality FiO2 % Sodium 143 Potassium 4.1 Chloride 107 Carbon Dioxide 24 L Anion Gap 13 BUN 21 Creatinine 1.6 H Estimated GFR/1.73 m2 32 BUN/Creatinine Ratio 13 Glucose 122 H Calculated Osmolality 289 Calcium 9.0 Total Bilirubin 0.60 AST 13 ALT 10 Alkaline Phosphatase 79 Creatine Kinase Troponin T Gmo-Y-Ejlynnclsev Pept 5070 H Total Protein 8.2 Albumin 3.4 L Globulin 5.0 Albumin/Globulin Ratio 1.0 TSH 10/17/18 10/17/18 09:49 09:56 WBC RBC Hgb Hct MCV MCH MCHC RDW Std Deviation Plt Count MPV Immature Gran % (Auto) Neut % (Auto) Lymph % (Auto) [place] % (Auto) Eos % (Auto) Baso % (Auto) Immature Gran # (Auto) Neut # (Auto) Lymph # (Auto) [place] # (Auto) Eos # (Auto) Baso # (Auto) D-Dimer, Quantitative Specimen Type ARTERIAL Sample Site R BRACHIAL pH 7.34 L pCO2 45 pO2 51 L HCO3 23.5 Base Excess -1.6 Oxyhemoglobin 84.9 L* ABG O2 Sat (Calculated) 11.7 L ABG O2 Saturation 88.7 L ABG Carboxyhemoglobin 3.40 H ABG Methemoglobin 0.9 [place] Test NO A-a O2 Difference 121.0 Total Hemoglobin 9.8 L Lactate 1.70 Liter Flow 3.0 Blood Gas Modality CANNULA FiO2 % 32.0 Sodium Potassium Chloride Carbon Dioxide Anion Gap BUN Creatinine Estimated GFR/1.73 m2 BUN/Creatinine Ratio Glucose Calculated Osmolality Calcium Total Bilirubin AST ALT Alkaline Phosphatase Creatine Kinase Troponin T Pza-T-Pytalzbmxea Pept Total Protein Albumin Globulin Albumin/Globulin Ratio TSH 0.16 L Orders Category Date Time Status Cardiac Monitoring DIRECTED Care 10/17/18 09:54 Active Nursing- Obtain EKG once Care 10/17/18 09:56 Active Oxygen Therapy- ED Nursing DIRECTED Care 10/17/18 09:55 Active Saline Loc NOW Care 10/17/18 09:54 Active CHEST-PORTABLE [RAD] Stat Exams 10/17/18 09:49 Completed ABG [RESP] Routine Lab 10/17/18 09:56 Completed CBC WITH ELECTRONIC DIFF [HEME] Stat Lab 10/17/18 09:49 Completed CK PROFILE [SP CHEM] Stat Lab 10/17/18 09:49 Completed COMPREHENSIVE METABOLIC PANEL [CHEM] Stat Lab 10/17/18 09:49 Completed D-DIMER [COAG] Stat Lab 10/17/18 09:49 Completed PRO B-NATRIURETIC PEPTIDE Stat Lab 10/17/18 09:49 Completed TROPONIN T Stat Lab 10/17/18 09:49 Completed TSH Stat Lab 10/17/18 09:49 Completed Furosemide [Lasix] Med 10/17/18 09:50 Discontinued 40 mg IV NOW ONE Nitroglycerin Med 10/17/18 09:40 Discontinued 1 inch .ROUTE .STK-MED ONE Nitroglycerin Med 10/17/18 09:49 Discontinued 1 inch TOP NOW ONE Result Diagrams: 10/17/18 09:49 10/17/18 09:49 - REASSESSMENT Reassessment #1 Time Reassessed: 10:07 Status: unchanged - EKG 1 Time of EKG reading by physician:: 09:44 EKG Read and Signed by:: Juarez Redman EKG Interpretation (*Must complete 3 of following elements*): Normal Rate: 76 Rhythm: Normal sinus rhythm [place]: normal QRS: normal [place] Interval: normal ST Wave: normal - XRAY 1 XRAY Study: Chest Impression: Abnormal (FINDINGS: The central vasculature is increased suggesting pulmonary venous congestion and mild perihilar edema. There is no discrete pleural fluid collection or pneumothorax. The cardiac silhouette is borderline to mildly prominent but stable. IMPRESSION: Suggestion of pulmonary venous congestion and mild interstitial edema.) - CONSULTS/PCP/HOSPITALIST Notification #1 *Consult/PCP/Hospitalist*: Dr. Ashraf Time Discussed: 10:36 Consult Disposition: Admit Departure - Departure Date of Disposition Decision: 10/17/18 Time of Disposition Decision: 10:42 DIAGNOSIS: Hypoxemia Anemia Qualifiers: Anemia type: unspecified type Qualified Code(s): D64.9 - Anemia, unspecified Heart failure Qualifiers: Heart failure type: unspecified Heart failure chronicity: unspecified Qualified Code(s): I50.9 - Heart failure, unspecified Disposition: ADMITTED INPATIENT 09 Certified Medical Emergency: Emergent Condition: Stable Additional Freetext Instructions: ED Follow Up Instructions: You have been treated by a care provider in the Emergency Department. These instructions are being provided to you so you can have an understanding of how to care for yourself upon discharge. Upon discharge from the Emergency Department, you are responsible for making arrangements for follow-up care by a physician of your choice. Take all prescribed medications as directed. Return to the Emergency Department immediately for any new or worsening symptoms. You may call the Physician Referral phone number at [phone] to obtain a list of Physicians who are taking new patients. Referrals and Follow-Ups: Reagan Yun MD [Primary Care Provider] - Discharge Education: Hypoxemia - Critical Care Note This patient required my direct & personal management of CC.: Yes Total Time (mins): 37 Critical Care Statement: This patient required my direct personal management to treat or rule out processes, the absence of which, could potentiallly result in sudden, clinically significant life or limb threatening deterioration. Attestation - Physician/ SHAYY Attestation Patient care was provided by Advanced Practice Provider:: No The physician spent face to face time with patient:: Yes Advanced Practice Provider documentation review:: Supervising physician onsite and consulted in the evaluation and care of this patient. The physician did have a face to face encounter with the patient. This chart was documented by the indicated scribe, (Mary Horvath Scribe) and accurately reflects the services I performed and decisions made by me, Juarez Redman MD, as attested by the provider's signature.
== END 2018-10-21 16:00 | disposition home or self-care (01) | DRG 291 ==
LOC: P.ED 09:19 → SUATTDRO 09:20 → P.EDIPHOLD 09:20
PROVIDERS: ATTEND Family Medicine
CPT/HCPCS: 71010; 71020; 71045; 71046; 71250; 78582; 80048; 80053; 81001; 82330; 82550; 82728; 82805; 82947; 82948; 83020; 83021; 83540; 83550; 83880; 84132; 84295; 84439; 84443; 84484; 85014; 85018; 85025; 85379; 85651; 86140; 86431; 93005; 93306; 93970; 94761; 96374; 99285; A9270; A9539; A9540; C8929; J1940; Q9957; XXXXX

== ENCOUNTER 2018-12-25 10:47 | Inpatient (IN) ==
[2018-12-25] MEDS ORDERED: ASPIRIN PO ONE (10:56)
[2018-12-25] MEDS ORDERED: LASIX IV ONE ×2 (11:16→12:47)
[2018-12-25 11:46] LABS: BASO# 0.01 X1000 (0.0-0.2); BASO% 0.2 % (0.0-0.8); EOS% 1.7 % (0.0-10.0); IMM GRAN# 0.03 X1000 (0.0-0.04); IMM GRAN% 0.5 % (0.0-0.5); LYMPH# 0.94 X1000 (1.2-3.4); MCH 22.3 PG (27-31); MCV 74.4 FL (81-99); MONO# 0.45 X1000 (0.11-0.59); MONO% 7.7 % (1.7-9.3); NEUT# 4.33 X1000 (1.4-6.5); NEUT% 73.9 % (42.2-75.2); PLT 224 X1000 (130-400); RBC 4.03 XMIL (4.2-5.4); RDW 18.8 % (11.5-14.5); WBC 5.86 X1000 (4.8-10.8)
--- NOTE | 2018-12-25 11:50 | Diag Imaging Result Doc PS360 ---
CHEST-2 VIEWS - 12/25/2018 INDICATION: sob COMPARISON: 10/19/2018 FINDINGS: There is cardiomegaly and pulmonary vascular congestion. There is diffuse bilateral interstitial pulmonary edema. There are trace pleural effusions. IMPRESSION: Cardiomegaly, pulmonary edema, pleural effusions. Electronically signed by Sonny Sharp 12/25/2018 11:47 AM
[2018-12-25 12:25] LABS: ALBUMIN 3.4 g/dL (3.5-5.0); CALCIUM 8.8 mg/dL (8.8-10.2); CREATININE 1.8 mg/dL (0.5-0.9); POTASSIUM 4.7 mmol/L (3.5-5.1); TOTAL BILIRUBIN 0.4 mg/dL (0.20-1.00); TOTAL PROTEIN 8.4 g/dL (6.3-8.3)
--- NOTE | 2018-12-25 12:33 | EKG Report ---
Test Performed on : 12/25/2018 11:04:06 AM Test Reason : cp Blood Pressure : / mmHG Vent. Rate : 066 BPM Atrial Rate : 066 BPM P-R Int : 176 ms QRS Dur : 098 ms QT Int : 442 ms P-R-T Axes : 042 025 055 degrees QTc Int : 463 ms Normal sinus rhythm. Normal ECG When compared with ECG of 19-OCT-2018 06:02, aberrant conduction. is no longer present Unconfirmed Result
[2018-12-25 12:48] LABS: INR 1.46; PROTIME 18.5 Seconds (11.0-16.0)
[2018-12-25 12:50] LABS: PTT 47.7 Seconds (22.3-41.8)
[2018-12-25] MEDS ORDERED: TYLENOL PO PRN (13:16)
[2018-12-25] MEDS ORDERED: ZOFRAN IV PRN (13:16)
--- NOTE | 2018-12-25 14:29 | PROVIDER DOCUMENTATION ---
This chart was entered by Zainab Dimas Scribe, acting as scribe for Raul Richard MD. HPI-Respiratory General - General Chief Complaint: Shortness of Breath Stated Complaint: SOB Time Seen by Provider: 12/25/18 11:07 Source: patient Allergies/Adverse Reactions: Patient Allergies Allergy/AdvReac Type Severity Reaction Status Date / Time adhesive tape AdvReac ITCHING Verified 07/11/18 20:52 Home Medications: Home Medication List Medication Instructions Recorded Confirmed Last Taken Type Dronedarone HCl [Multaq] 1 cap PO BID 07/11/18 12/25/18 10/17/18 08:00 History Furosemide 1 cap PO BID 07/11/18 12/25/18 10/17/18 08:00 History Gabapentin 1 cap PO BID 07/11/18 12/25/18 10/17/18 08:00 History Sitagliptin [Januvia] 1 cap PO DAILY 07/11/18 12/25/18 10/17/18 08:00 History Apixaban [Eliquis] 1 cap PO BID #0 10/17/18 12/25/18 10/17/18 08:00 Rx Carvedilol 1 tab PO BID 12/25/18 12/25/18 12/25/18 History Hydrocodone/Acetaminophen [[place] 1 ea PO TID PRN 12/25/18 12/25/18 Unknown History 7.5-325 Tablet] Levothyroxine Sodium 1 tab PO DAILY 12/25/18 12/25/18 Unknown History Magnesium Oxide 1 tab PO DAILY 12/25/18 12/25/18 12/25/18 History Potassium Chloride 1 tab PO DAILY 12/25/18 12/25/18 12/25/18 History - History of Present Illness-Resp Nature of Presenting Problem: Patient is a 73 year old female who presents with shortness of breath that started last night. States mild cough. Denies fever and chills. History of CHF and anemia. 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 Denies having chemo treatments. Quality of Pain: reports: tightness Severity in ED: reports: moderate Onset/Duration: reports: 24 hours ago Timing: reports: still present Cough Quality/Degree: reports: mild, dry cough Episode Frequency: rare episodes Current Respiratory Medication Therapy: Initiated see nurses note Modifying Factors: improves with: nothing Associated Symptoms: reports: cough, shortness of breath Similar Symptoms Previously?: Yes Recently seen or treated by another doctor?: Yes Review of Systems - Adult - REVIEW OF SYSTEMS - ADULT Constitutional: reports: no symptoms reported. denies: chills, fever, fatique Eyes: reports: no symptoms reported Ears, Nose, Mouth & Throat: reports: no symptoms reported Cardiovascular: reports: no symptoms reported. denies: chest pain, irregular heart rate, palpitations Respiratory: reports: see HPI, cough, shortness of breath. denies: wheezing Gastrointestinal: reports: no symptoms reported Genitourinary: reports: no symptoms reported Musculoskeletal: reports: no symptoms reported Integumentary: reports: no symptoms reported Neurological: reports: no symptoms reported Psychiatric: reports: no symptoms reported Endocrine: reports: no symptoms reported Hematologic/Lymphatic: reports: no symptoms reported Allergic/Immunologic: reports: no symptoms reported All Other Systems: Reviewed and Negative Past History - Adult - PAST MEDICAL HISTORY-ADULT Review of Records: reports: Nursing Assessment Review, Medications Reviewed, Social history reviewed & non-contributory. Major Childhood Illnesses: reports: denies history Cardiovascular: reports: A-Fib, CHF, HTN Respiratory: reports: denies history Gastrointestinal: reports: denies history Obstetrical/Gynecological: reports: denies history Genitourinary: reports: denies history Musculoskeletal: reports: denies history Neurological: reports: denies history Endocrine/Immune: reports: anemia, Diabetes, thyroid disorder Other Conditions: reports: denies history - PRIOR SURGERIES/PROCEDURES Surgical/Procedure History: reports: hysterectomy, bowel surgery - IMMUNIZATION STATUS Childhood Immunizations: See Nurse Assessment Flu Vaccine: See Nurse Assessment - FAMILY HISTORY Family History: reviewed, not pertinent - SOCIAL HISTORY Smoking: denies Substance Use: denies Living Situation: family Physical Exam-General - PHYSICAL EXAM-ADULT Initial Vital Signs Reviewed: Yes - CONSTITUTIONAL General Appearance: alert, no apparent distress. negative: lethargic, slow to respond - HEAD, EARS, NOSE, MOUTH & THROAT HENMT: normal ENT inspection. negative: angioedema, hearing deficit - RESPIRATORY Respiratory: chest non-tender, rales (bilateral bases). negative: respiratory distress - CARDIOVASCULAR Cardiovascular: normal peripheral pulses, regular rate, rhythm, JVD. negative: tachycardia, systolic murmur - GASTROINTESTINAL (ABDOMEN) Abdominal Exam: normal bowel sounds, non tender, soft. negative: distended, guarding, rigid - MUSCULOSKELETAL Extremity: non-tender, normal inspection. negative: deformity, erythema - SKIN Integumentary: normal color, normal turgor, warm/dry. negative: cyanosis, ecchymosis, erythema - NEUROLOGIC Neurologic: grossly normal. negative: aphasia, facial droop - PSYCHIATRIC Psych/Mental Status: normal mood/affect, oriented x 3. negative: anxious Progress - PLAN OF CARE/RESULTS Result Diagrams: 12/25/18 11:32 12/25/18 11:32 - EKG 1 Time of EKG reading by physician:: 11:04 EKG Read and Signed by:: Raul Richard EKG Interpretation (*Must complete 3 of following elements*): Normal Rate: 66 Rhythm: normal sinus rhythm [place]: normal QRS: normal [place] Interval: normal ST Wave: normal Comments: normal ECG - XRAY 1 XRAY Study: Chest Impression: See EMR Report ( CHEST-2 VIEWS - 12/25/2018 INDICATION: sob C OMPARISON: 10/19/2018 FINDINGS: There is cardiomegaly and pulmonary vascular congestion. There is diffuse bilateral interstitial pulmonary edema. There are trace pleural effusions. IMPRESSION: Cardiomegaly, pulmonary edema, pleural effusions. Electronically signed by Sonny Sharp 12/25/2018 11:47 AM 12/25/18 1147 Interpreting Physician: Sonny Sharp MD Dictated Date/Time: 12/25/18 1146 cc: Raul Richard MD; Reagan Yun MD) - CONSULTS/PCP/HOSPITALIST Notification #1 *Consult/PCP/Hospitalist*: Dr. Brown Time Discussed: 12:46 Reason/Comments: Dr. Richard consulted with Dr. Brown about patient. Consult Disposition: other (Dr. Brown states give her more Lasix and watch pt.) Departure - Departure Date of Disposition Decision: 12/25/18 Time of Disposition Decision: 14:25 DIAGNOSIS: SOB (shortness of breath), Heart failure, Anemia, Hypoxemia Disposition: ADMITTED INPATIENT 09 Certified Medical Emergency: Emergent Condition: Stable - Critical Care Note This patient required my direct & personal management of CC.: No Attestation - Physician/ SHAYY Attestation The physician spent face to face time with patient:: Yes Advanced Practice Provider documentation review:: Supervising physician onsite and consulted in the evaluation and care of this patient. The physician did have a face to face encounter with the patient. This chart was documented by the indicated scribe, (Zainab Dimas Scribe) and accurately reflects the services I performed and decisions made by me, Raul Richard MD, as attested by the provider's signature.
--- NOTE | 2018-12-25 14:31 | HISTORY AND PHYSICAL ---
PRIMARY CARE PROVIDER: Dr. Reagan Yun. CHIEF COMPLAINT: Shortness of breath. HISTORY OF PRESENT ILLNESS: Ms. Kaylen Wilson is a 73-year-old - [place] female who was most recently here in October with the same complaint of shortness of breath and at that time was diagnosed with acute on chronic diastolic congestive heart failure and was treated. She went home. She states she had been feeling good up until yesterday when she started having more shortness of breath and even felt like she was wheezing some. She denies having any fever but has had some cold chills and nonproductive cough that feels like she can cough up something. She denies having any swelling in the lower extremities. She states that she did have a little bit of swelling 2 days ago, but that resolved. Apparently, she is going through some stress right now. Her mother just recently . 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 Apparently, she buys the groceries, does the hiring and firing, makes doctors appointments, etc. I believe this is causing a little more stress on her. Her chest x- ray reveals that she has got some pulmonary edema, and she has some hypoxemic respiratory insufficiency requiring oxygen. We will admit her for acute heart failure. Her pulmonary hypertension is probably a little worse. So, we will get a new echocardiogram to re-evaluate her heart function; and we will start her on Lasix. PAST MEDICAL HISTORY: 1. Diastolic congestive heart failure with Grade 1 diastolic dysfunction on echocardiogram from September,. 2. Atrial fibrillation that is paroxysmal. She is currently in sinus rhythm and has left atrial enlargement. 3. Hypertension. 4. Diabetes mellitus Type 2. 5. Pulmonary artery hypertension, moderate; systolically 55 mmHg in September,. 6. LVH with ejection fraction of 70%. 7. Hypothyroidism. 8. CKD Stage 3. 9. Hyperlipidemia. SURGICAL HISTORY: 1. Hysterectomy. 2. Colon tumor removed that was benign in April,. Apparently, it was like a partial colon resection. 3. Bilateral rotator cuff repair. SOCIAL HISTORY: Quit smoking in 1989, but prior to that smoked less than 1/2 pack per day for about 2 or 3 years. She denies alcohol or illicit drug use. She is currently living at home alone and does not need any assistive devices to get around. FAMILY HISTORY: Mother's side of the family with lung cancer. Father's side of the family with stroke. ALLERGIES: Adhesive tape. HOME MEDICATIONS: Have not been reconciled, but the order has been placed. REVIEW OF SYSTEMS: A 14-point review of systems are complete and all are negative except for those mentioned above in HPI. PHYSICAL EXAMINATION: VITAL SIGNS: Temperature 98.1; heart rate 66; respiratory rate 19; blood pressure 127/82; O2 saturation 90% on 2 liters nasal cannula. GENERAL: Ms. Kaylen Wilson is a 73-year-old -[place] female. She is in no acute distress. She is able to answers questions appropriately. HEENT: Atraumatic, normocephalic. Pupils equal, round and reactive to light. Extraocular movements intact. Mucous membranes are moist. NECK: Trachea midline. CARDIOVASCULAR: S1, S2. Regular rate and rhythm. No rubs, gallops, or murmurs. No lower extremity edema, +2 dorsalis and radial pulses. Negative JVD or carotid bruits. PULMONARY: Clear to auscultate bilateral breath sounds. No accessory muscle use or work of breathing noted. GASTROINTESTINAL: Soft, nontender and nondistended. Positive bowel sounds x4. EXTREMITIES: Moves all extremities equally with full range of motion. NEUROLOGIC: A and O x3. Follows commands. Sensory is intact. SKIN: Warm, dry and intact. LABORATORY DATA: WBC 5000, hemoglobin 9, hematocrit 30, platelet count 224,000, INR 1.46, PTT 47.7, sodium 142, potassium 4.7, BUN 31, creatinine 1.1, glucose 123, calcium 8.8, bilirubin 0.4, AST 17, ALT 8. Troponin less than 0.01, ProBNP 2808, albumin 3.4. IMAGING: Chest x-ray: Cardiomegaly, pulmonary edema and pleural effusion. EKG: Normal sinus rhythm, rate 66, QTc 463. ASSESSMENT AND PLAN: 1. Acute on chronic diastolic congestive heart failure with Grade 1 diastolic dysfunction along with moderate pulmonary artery hypertension and normal ejection fraction with LVH. No lower extremity edema, but chest x-ray shows that she has got pulmonary edema and she is having shortness of breath with a nonproductive cough. She is receiving 80 of Lasix IV in the ER. We will continue with 40 twice a day. She takes 20 p.o. twice a day at home. We will have to monitor her kidney function closely. We will get an echocardiogram to compare to the echocardiogram from September,. Given the pulmonary hypertension and specifically if it has worsened and she is having more symptoms, we may can add some isosorbide to her medications. 2. Atrial fibrillation history, paroxysmal. She is currently in sinus rhythm. History of heart failure, so they have her on Coreg; and that will have to be put into the computer once they verify her home meds, but she states they changed her from Bystolic to Coreg due to insurance company not covering Bystolic. She will continue on Eliquis. We will monitor her electrolytes given the fact that she is receiving IV Lasix and will continue her Multaq once they get that verified as well. 3. Hypothyroidism. Continue Synthroid. 4. Hyperlipidemia. Continue atorvastatin. 5. Iron deficiency anemia. Continue iron. 6. Diabetes mellitus Type 2. Will do patterned blood glucoses and sliding scale insulin, holding p.o. meds for now and doing a diabetic diet. 7. Hypertension. Continue home meds. 8. CKD Stage 3. Currently stable at baseline. 9. DVT prophylaxis. SCDs for now. She is going to be on Eliquis once it is verified. Dictated by EVELIO Jackson for Damion Stockton MD Addendum: Patient seen and examined by myself. Agree with EVELIO note. It reflects my assessment and plan. Patient is being admitted to hospital for acute diastolic congestive heart failure so will start Lasix 60 mg IV q12 hours. Will continue with home medications for atrial fibrillation. Will monitor patient closely. cc: EVELIO Jackson MD [facility]
[2018-12-25] MEDS ORDERED: PNEUMOVAX 23 IM ONE (15:10)
[2018-12-25] MEDS ORDERED: NORCO-7.5 PO PRN (16:33)
[2018-12-25] MEDS: DUONEB (A & A) INH SCH ×2 (16:37→21:00)
[2018-12-25] MEDS: HUMULIN R (PARKWAY) SUBQ SCH ×2 (16:39→21:03)
[2018-12-25] MEDS: ELIQUIS PO SCH (21:00)
[2018-12-25] MEDS: MULTAQ PO SCH (21:00)
[2018-12-25] MEDS: COREG PO SCH (21:00)
[2018-12-25] MEDS: NEURONTIN PO SCH (21:00)
[2018-12-26] MEDS: DUONEB (A & A) INH SCH ×5 (04:20→21:00)
[2018-12-26] MEDS: SYNTHROID PO SCH ×4 (05:31→06:12)
[2018-12-26] MEDS: HUMULIN R (PARKWAY) SUBQ SCH ×4 (06:18→21:04)
[2018-12-26 07:07] LABS: BASO# 0.01 X1000 (0.0-0.2); BASO% 0.2 % (0.0-0.8); EOS# 0.11 X1000 (0.0-0.7); EOS% 2.2 % (0.0-10.0); HEMATOCRIT 27.6 % (37.0-47.0); HEMOGLOBIN 8.2 g/dL (12.0-16.0); IMM GRAN# 0.01 X1000 (0.0-0.04); IMM GRAN% 0.2 % (0.0-0.5); LYMPH# 0.66 X1000 (1.2-3.4); LYMPH% 13.1 % (20.5-51.1); MCH 22.3 PG (27-31); MCHC 29.7 g/dL (33-37); MONO# 0.45 X1000 (0.11-0.59); MONO% 8.9 % (1.7-9.3); MPV 12.1 FL (7.4-10.4); NEUT% 75.4 % (42.2-75.2); PLT 196 X1000 (130-400); RBC 3.68 XMIL (4.2-5.4); RDW 18.5 % (11.5-14.5); WBC 5.04 X1000 (4.8-10.8)
[2018-12-26 07:38] LABS: ALBUMIN 3.3 g/dL (3.5-5.0); CALCIUM 8.8 mg/dL (8.8-10.2); CREATININE 1.9 mg/dL (0.5-0.9); MAGNESIUM 1.5 mg/dL (1.5-2.7); POTASSIUM 3.8 mmol/L (3.5-5.1); TOTAL BILIRUBIN 0.4 mg/dL (0.20-1.00); TOTAL PROTEIN 7.7 g/dL (6.3-8.3)
--- NOTE | 2018-12-26 07:59 | Diag Imaging Result Doc PS360 ---
EXAM: CHEST-2 VIEWS INDICATION: pulm edema TECHNIQUE: 2 views COMPARISON: 12/25/2018 FINDINGS: Pulmonary edema, pulmonary venous congestion, and small effusions are stable. No new consolidation is identified. Cardiac silhouette is stable. IMPRESSION: Stable chest. Electronically signed by Power Ling 12/26/2018 7:57 AM
[2018-12-26 08:00] LABS: BILIRUBIN URINE NEGATIVE (NEGATIVE); BLOOD URINE NEGATIVE (NEGATIVE); GLUCOSE URINE NEGATIVE (NEGATIVE); KETONE URINE NEGATIVE (NEGATIVE); LEUKOCYTES URINE NEGATIVE (NEGATIVE); NITRITE URINE NEGATIVE (NEGATIVE); PROTEIN URINE NEGATIVE (NEGATIVE); UROBILINOGEN URINE NORMAL
[2018-12-26 08:01] LABS: CLARITY CLEAR (CLEAR); COLOR YELLOW; URINE BACTERIA 1+ /HFP; URINE CAST NONE SEEN /LPF; URINE CRYSTAL NONE SEEN /HPF; URINE EPITHELIAL CELLS <10 /HPF (<10); URINE RBC <10 /HPF (<10); URINE SOURCE CLEAN CATCH; URINE WBC <10 /HPF (<10); URINE YEAST PRESENT /HPF
[2018-12-26] MEDS ORDERED: SODIUM CHLORIDE 0.9% 10 ML ONE (08:04)
[2018-12-26 08:46] LABS: INR 1.6; PROTIME 19.8 Seconds (11.0-16.0)
[2018-12-26 08:47] LABS: PTT 46.4 Seconds (22.3-41.8)
[2018-12-26] MEDS: ELIQUIS PO SCH ×2 (09:59→21:03)
[2018-12-26] MEDS: COREG PO SCH ×2 (09:59→21:04)
[2018-12-26] MEDS: KLOR-CON PO SCH (09:59)
[2018-12-26] MEDS: MAG-OX PO SCH (09:59)
[2018-12-26] MEDS: MULTAQ PO SCH ×2 (09:59→21:04)
[2018-12-26] MEDS: LASIX IV SCH ×2 (09:59→21:03)
[2018-12-26] MEDS: NEURONTIN PO SCH ×2 (09:59→21:03)
--- NOTE | 2018-12-26 14:34 | PROGRESS NOTE ---
DATE: 12/26/2018 SUBJECTIVE: The patient reports feeling better. Less chest congestion. No fever or chills reported. OBJECTIVE: Vital Signs: Temperature 98.8 degrees, heart rate 68, respiratory rate 18, blood pressure 114/74, O2 saturation 94% on 2 L nasal cannula. General examination: This is a chronically ill appearing, 73-year-old, female, lying in bed in no acute distress. Cardiovascular: S1, S2 heard. No murmurs, gallops, or rubs. Regular rate and rhythm. Respiratory exam: Minimal crackles in both pulmonary bases. Patient is not using any accessory muscles or having work of breathing. Abdomen: Soft. A little bit distended, but nontender to palpation. Bowel sounds present. No organomegaly. Extremities: No clubbing, cyanosis, or edema. Peripheral pulses present in both legs. Neurological exam: Patient alert and oriented x3. Moves 4 extremities. LABORATORY DATA: Reviewed. ASSESSMENT AND PLAN: 1. Acute on chronic diastolic congestive heart failure. Patient has been started on Lasix 40 mg intravenous every 12 hours. At home she takes 20 mg oral twice daily. She reports clinically feeling better. Renal function is stable. She has chronic kidney disease. We have order limited view echocardiogram, and we will go from there. 2. History of paroxysmal atrial fibrillation. Patient is now in sinus rhythm. Patient is supposed to be on a beta ari. Apparently, she has been taking Bystolic, but because of insurance coverage she was not able to take it. The patient is on Eliquis. Will continue with the same medication. 3. Hypothyroidism. Will continue home doses of Synthroid. 4. Hyperlipidemia. We will continue with atorvastatin. 5. Iron-deficiency anemia. We will continue with iron supplements. 6. Diabetes mellitus type 2. We will continue with sliding scale insulin. Accu-Chek before meals and also at bedtime. 7. Chronic kidney disease stage IIIA. Creatinine at baseline. We will continue to monitor. cc: Damion Stockton MD
--- NOTE | 2018-12-26 20:06 | ECHO REPORT ---
ORDER DATE: 12/25/2018 MEASUREMENTS: Septal thickness 1.0, left ventricular internal diameter diastole 4.1, left ventricular internal diameter in systole 2.5, posterior wall thickness 1.0, aortic root 3.2 SUMMARY: 1. Adequate quality study. 2. Aortic valve is trileaflet and demonstrates very mild aortic valve sclerosis with normal aortic valve opening evident. There is trace aortic regurgitation. Mitral, tricuspid and pulmonic valves are without evidence of structural abnormality with trace mitral regurgitation, mild tricuspid regurgitation and moderate pulmonic insufficiency. The estimated systolic PA pressure by Doppler is 75 mmHg suggesting moderate to severe pulmonary hypertension. Aortic root is normal size. 3. Normal left ventricular dimensions demonstrated. Estimated left ejection fraction appears to be at least 65%. No regional wall abnormalities are evident. Left atrium is mildly enlarged. Right atrium is mildly enlarged. The right ventricle is moderately enlarged with reduced right ventricular systolic function. 4. No pericardial effusion. 5. Appearance of inferior vena cava suggests normal central venous pressure. cc: MD Milagro Gtz CRNP
[2018-12-27] MEDS: DUONEB (A & A) INH SCH ×4 (05:07→22:00)
[2018-12-27] MEDS: SYNTHROID PO SCH ×4 (05:54→06:05)
[2018-12-27] MEDS: HUMULIN R (PARKWAY) SUBQ SCH ×4 (06:05→22:07)
[2018-12-27 09:16] LABS: BASO# 0.02 X1000 (0.0-0.2); BASO% 0.3 % (0.0-0.8); EOS# 0.19 X1000 (0.0-0.7); EOS% 2.7 % (0.0-10.0); HEMOGLOBIN 9.2 g/dL (12.0-16.0); IMM GRAN# 0.02 X1000 (0.0-0.04); IMM GRAN% 0.3 % (0.0-0.5); LYMPH# 0.63 X1000 (1.2-3.4); LYMPH% 8.8 % (20.5-51.1); MCHC 29.7 g/dL (33-37); MCV 74.2 FL (81-99); MONO# 0.47 X1000 (0.11-0.59); MONO% 6.6 % (1.7-9.3); NEUT# 5.83 X1000 (1.4-6.5); NEUT% 81.3 % (42.2-75.2); PLT 229 X1000 (130-400); RBC 4.18 XMIL (4.2-5.4); RDW 18.4 % (11.5-14.5); WBC 7.16 X1000 (4.8-10.8)
[2018-12-27 09:25] LABS: EOS 1 % (1-10); HYPOCHROM 2+; LYMPHS 7 % (21-51); MICROCYTOSIS 2+; MONO 6 % (1-9); SEGS 85 % (42-75)
[2018-12-27 09:37] LABS: CALCIUM 9.3 mg/dL (8.8-10.2); CREATININE 1.9 mg/dL (0.5-0.9)
[2018-12-27] MEDS: COREG PO SCH ×2 (10:20→22:07)
[2018-12-27] MEDS: MAG-OX PO SCH (10:20)
[2018-12-27] MEDS: NEURONTIN PO SCH ×2 (10:20→22:06)
[2018-12-27] MEDS: LASIX IV SCH ×2 (10:20→22:07)
[2018-12-27] MEDS: KLOR-CON PO SCH (10:20)
[2018-12-27] MEDS: MULTAQ PO SCH ×2 (10:20→22:07)
[2018-12-27] MEDS: ELIQUIS PO SCH ×2 (10:20→22:07)
--- NOTE | 2018-12-27 11:29 | PROGRESS NOTE ---
DATE: 12/27/2018 SUBJECTIVE: This patient is lying comfortably in bed. No acute events overnight. No fever, no chills. She is still complaining of shortness of breath though. OBJECTIVE: Vital Signs: Temperature 98.6 degrees, pulse 73, respiratory rate 18, blood pressure 137/76, oxygen saturation 94% on 3 L of nasal cannula. HEENT: Head normocephalic. No trauma. PERRLA. Neck: Supple. She does have some JVD. Central trachea. Chest: Clear to auscultation. Some crackles at the bases. Abdomen: Soft, slightly distended, nontender. No hepatosplenomegaly. Extremities: Trace edema. No clubbing. No cyanosis. Neurological: The patient is sleepy, but arousable, oriented x3. She moves all 4 extremities. LABORATORY DATA: WBC 7.1, hemoglobin 9.2, hematocrit 31, platelets 229,000. Sodium 140, potassium 4, chloride 96, bicarbonate 32, BUN 29, creatinine 1.9, glucose 183, calcium 9.3. ASSESSMENT AND PLAN: 1. Acute on chronic diastolic congestive heart failure. I will continue with the same management for now. She is on Lasix intravenously, but she has oral treatment at home. She feels a little bit better. Her renal function is at baseline. She has chronic kidney disease. Echocardiogram showed an elevated pulmonary arterial pressure, which I do not think is new. She does have [id number] pulmonary hypertension. 2. Wfnoebcu-vo-fyrshw pulmonary hypertension. As above. Continue with diuresis. 3. History of paroxysmal atrial fibrillation. At this moment, she is in sinus rhythm. We will continue with the same management. She is on Eliquis. 4. Hypothyroidism. Continue with Synthroid. 5. Hyperlipidemia. Continue with atorvastatin. 6. Iron-deficiency anemia. Continue with iron supplements. 7. Type 2 diabetes. Continue with sliding scale insulin and pattern blood sugar. 8. Chronic kidney disease, likely stage IIIA. Creatinine at baseline. Will continue to monitor. cc: Bryon Jefferson MD
[2018-12-28] MEDS: DUONEB (A & A) INH SCH ×4 (05:20→23:00)
[2018-12-28] MEDS: SYNTHROID PO SCH ×2 (06:00→06:01)
[2018-12-28] MEDS: HUMULIN R (PARKWAY) SUBQ SCH ×4 (06:14→23:19)
--- NOTE | 2018-12-28 07:23 | Diag Imaging Result Doc PS360 ---
EXAM: CHEST-2 VIEWS HISTORY: pulmonary edema TECHNIQUE: Chest two views COMPARISON: 12/26/2018 FINDINGS: The lungs are well expanded. Interval decrease in the pulmonary edema. Heart is borderline mildly prominent. Resolution of the small effusions. Possible underlying infiltrates in the left lung base. IMPRESSION: Overall interval improvement. Electronically signed by Moisés Orozco 12/28/2018 7:20 AM
[2018-12-28 07:47] LABS: CALCIUM 9.1 mg/dL (8.8-10.2); CREATININE 1.6 mg/dL (0.5-0.9); MAGNESIUM 1.5 mg/dL (1.5-2.7); POTASSIUM 3.5 mmol/L (3.5-5.1)
[2018-12-28 07:49] LABS: BASO# 0.02 X1000 (0.0-0.2); BASO% 0.3 % (0.0-0.8); EOS# 0.14 X1000 (0.0-0.7); EOS% 2.4 % (0.0-10.0); HEMATOCRIT 29.1 % (37.0-47.0); HEMOGLOBIN 8.7 g/dL (12.0-16.0); IMM GRAN# 0.01 X1000 (0.0-0.04); IMM GRAN% 0.2 % (0.0-0.5); LYMPH# 0.82 X1000 (1.2-3.4); LYMPH% 14.3 % (20.5-51.1); MCHC 29.9 g/dL (33-37); MCV 73.5 FL (81-99); MONO# 0.41 X1000 (0.11-0.59); MONO% 7.1 % (1.7-9.3); MPV 11.3 FL (7.4-10.4); NEUT# 4.35 X1000 (1.4-6.5); NEUT% 75.7 % (42.2-75.2); PLT 199 X1000 (130-400); RBC 3.96 XMIL (4.2-5.4); WBC 5.75 X1000 (4.8-10.8)
[2018-12-28 07:58] LABS: IRON SATURATION 13 %; TIBC 164 ug/dL; TOTAL IRON 22 ug/dL (49-151); UNBOUND IRON 142 ug/dL (112-346)
[2018-12-28] MEDS ORDERED: LASIX IV SCH (09:00)
[2018-12-28 09:55] LABS: ANISOCYTOSIS 1+; EOS 2 % (1-10); LYMPHS 12 % (21-51); MICROCYTOSIS 1+; MONO 4 % (1-9); SEGS 82 % (42-75)
[2018-12-28] MEDS: ELIQUIS PO SCH ×2 (10:29→21:25)
[2018-12-28] MEDS: MULTAQ PO SCH ×2 (10:29→21:25)
[2018-12-28] MEDS: COREG PO SCH ×2 (10:29→21:25)
[2018-12-28] MEDS: ALDACTONE PO SCH (10:29)
[2018-12-28] MEDS: NEURONTIN PO SCH ×2 (10:30→21:25)
[2018-12-28] MEDS: KLOR-CON PO SCH (10:30)
[2018-12-28] MEDS: MAG-OX PO SCH (10:30)
[2018-12-28 15:24] LABS: FERRITIN 185 ng/mL (13-150)
--- NOTE | 2018-12-28 20:00 | PROGRESS NOTE ---
DATE: 12/28/2018 SUBJECTIVE: Patient notes that she is feeling a little bit better. She is having less swelling, less shortness of breath. Denies any fevers or chills. PHYSICAL EXAMINATION: Vital Signs: Temp 98, pulse 62, respiratory 20, BP 148/71. General: Patient is awake. She is in no current respiratory distress. She was able to ambulate a little bit yesterday and hopes to ambulate further today. HEENT: Normocephalic. Neck: Supple. Cardiovascular: Regular rate. No murmurs. Chest: Clear. Abdomen: Soft, nondistended. Extremities: Moves all extremities. Neurologic: No changes. ASSESSMENT: 1. Acute on chronic congestive heart failure, diastolic, improved. Over the two days that have been recorded, patient has had 1400 mL out both days. The third day was not reported accurately. Next 2. Moderate to severe pulmonary hypertension. 3. Hypothyroidism. 4. Hyperlipidemia. PLAN: We will decrease patient's Lasix to 40 IV daily. Will start her on low-dose Aldactone. We will continue to follow. Hopefully, she will continue to improve and can be discharged home. cc: Chintan Peña MD
[2018-12-29] MEDS: DUONEB (A & A) INH SCH ×2 (03:21→10:35)
[2018-12-29 05:47] LABS: AGAP 7; ALBUMIN 3.1 g/dL (3.5-5.0); ALKALINE PHOSPHATASE 58 U/L (32-104); BUN 28 mg/dL (8-22); CALCIUM 8.6 mg/dL (8.8-10.2); CHLORIDE 98 mmol/L (98-107); COSMO 284; CREATININE 1.6 mg/dL (0.5-0.9); GLUCOSE 91 mg/dL (70-104); GOT 10 U/L (10-30); GPT 5 U/L (10-36); MAGNESIUM 1.5 mg/dL (1.5-2.7); POTASSIUM 3.7 mmol/L (3.5-5.1); SODIUM 140 mmol/L (136-145); TCO2 36 mmol/L (25-35); TOTAL PROTEIN 7.5 g/dL (6.3-8.3)
[2018-12-29] MEDS: SYNTHROID PO SCH ×2 (06:03)
[2018-12-29 06:15] LABS: HEMATOCRIT 27.5 % (37.0-47.0); HEMOGLOBIN 8.1 g/dL (12.0-16.0); MCH 21.7 PG (27-31); MCHC 29.5 g/dL (33-37); MCV 73.7 FL (81-99); RBC 3.73 XMIL (4.2-5.4); WBC 4.4 X1000 (4.8-10.8)
[2018-12-29] MEDS: HUMULIN R (PARKWAY) SUBQ SCH ×2 (06:34→10:35)
[2018-12-29] MEDS ORDERED: LASIX PO SCH (09:00)
[2018-12-29] MEDS: MAG-OX PO SCH (09:15)
[2018-12-29] MEDS: NEURONTIN PO SCH (09:15)
[2018-12-29] MEDS: ELIQUIS PO SCH (09:15)
[2018-12-29] MEDS: ALDACTONE PO SCH (09:15)
[2018-12-29] MEDS: COREG PO SCH (09:15)
[2018-12-29] MEDS: MULTAQ PO SCH (09:15)
[2018-12-29] MEDS: KLOR-CON PO SCH (09:15)
[2018-12-29 11:26] VITALS: BP 119/73
--- NOTE | 2018-12-30 03:24 | DISCHARGE SUMMARY ---
ADMISSION DATE: 12/25/2018 DISCHARGE DATE: 12/29/2018 CONSULTATIONS: None. PERTINENT PROCEDURES: 1. Echocardiogram with limited views showed an EF of 65% with no regional wall abnormalities. PA pressure 75 mmHg, suggesting moderate to severe pulmonary hypertension. 2. Initial chest x-ray: Cardiomegaly, pulmonary edema, pleural effusions. 3. Followup chest x-ray overall interval improvement. DISCHARGE DIAGNOSES: 1. Acute on chronic congestive heart failure, diastolic, improved. 2. Moderate to severe pulmonary hypertension. She will need to continue followup with Cardiology as well as a [employer]. 3. Hypothyroidism. Continue Synthroid. 4. Hyperlipidemia. Continue statin. HOSPITAL COURSE: Briefly, Ms. Wilson is a 73-year-old female who was recently admitted in October with the same complaint of shortness of breath. At that time she was diagnosed with acute on chronic diastolic congestive heart failure and was treated. She went home, was feeling good up until the day of her admission where she started having shortness of breath and felt like she was wheezing. She denied any fever or productive cough, and she began to swell in her lower extremities 2 days prior. Her workup in the ED with a chest x-ray revealed pulmonary edema and hypoxemic respiratory insufficiency requiring oxygen. She was initiated on IV Lasix. They added Aldactone to her regimen. Repeat echocardiogram did show some moderate to severe pulmonary hypertension. She continued to be diuresed throughout her stay. She had good reported output. She was transition to p.o. Lasix. Her swelling decreased. Her chest x-ray improved, and she will be discharged back home today to resume her [facility] and follow up with Pulmonology and continue to follow up with Cardiology as well as her primary care provider, Dr. Reagan Yun. VITAL SIGNS: At time of discharge, temperature is 97.5 degrees, heart rate 62, respirations 16, blood pressure 119/73, O2 is 100%. DISCHARGE DIET: Diabetic. DISCHARGE MEDICATIONS: 1. Carvedilol 25 mg p.o. b.i.d. 2. Lasix 20 mg p.o. b.i.d. 3. Gabapentin 600 mg p.o. b.i.d. 4. Januvia 50 mg p.o. daily. 5. Levothyroxine 175 mg p.o. daily. 6. Mag-Ox 400 mg p.o. daily. 7. Multaq 400 mg p.o. b.i.d. 8. [place] 7.5/325, 1 each p.o. t.i.d. p.r.n. pain. 9. Potassium chloride 10 mg tablet extended release p.o. daily. 10. Aldactone 12.5 mg p.o. daily. 11. Eliquis 5 mg p.o. b.i.d. 12. Tylenol 650 mg p.o. q.4 hours p.r.n. pain. FOLLOWUP: Ms. Wilson is being discharged back home with [facility]. We will need them to recheck her potassium in the next 4 days given she was initiated on Aldactone and provide those results with her primary care provider, Dr. Reagan Yun. She will also need to find a [employer] teacher of her choosing to follow up on her pulmonary hypertension. Continue to follow with Cardiology and take medications as prescribed. She can return to the ED or call 911 for any worsening of symptoms. Dictated by EVELIO Saravia for Chintan Peña MD cc: MD Reagan Ballesteros MD
--- NOTE | 2018-12-30 09:52 | DISCHARGE SUMMARY ---
ADMISSION DATE: 12/25/2018 DISCHARGE DATE: 12/29/2018 ADDENDUM: DISCHARGE DIAGNOSES: 1. Moderate pulmonary hypertension. 2. Dyspnea on exertion, improved. 3. Diastolic congestive heart failure. 4. Hypoxic respiratory failure, acute on chronic. 5. Acute renal failure on chronic. Creatinine is improved down to 1.6 which I believe is her baseline. 6. Hypothyroidism. 7. Hypertension. 8. Hyperlipidemia. 9. Iron deficiency anemia. 10. Type 2 diabetes. CONSULTATIONS: None. PROCEDURES: None. BRIEF HOSPITAL COURSE: The patient was admitted to the hospital. Treated the usual fashion. Placed on the Lasix. On discharge, she is awake and alert. She is in no distress. DISPOSITION: Patient will be discharged home. We will continue her on Lasix 40 mg daily and have added Aldactone 12.5 daily to see if this will help with her pulmonary hypertension. She will follow up outpatient with her primary care and further orders as needed. Please see full dictated note. cc: Chintan Peña MD
== END 2018-12-29 14:28 | disposition home or self-care (01) | DRG 291 ==
LOC: P.ED 10:47 → SUATTDRO 10:48 → P.MEDSURG 10:48
PROVIDERS: ATTEND Family Medicine
CPT/HCPCS: 36415; 71020; 71046; 80048; 80053; 81001; 82550; 82607; 82728; 82746; 82948; 83540; 83550; 83735; 83880; 84484; 85025; 85027; 85610; 85730; 90732; 93005; 93306; 93308; 94640; 94761; 96374; 96376; 97163; 99285; A9270; J1815; J1940; XXXXX